=== PATIENT | female | born 1980 | race Caucasian/White ===

== ENCOUNTER 2017-06-28 16:56 | Inpatient (IN) | payer OTHER ==
[~2017-06-28] VITALS: Ht 170.2 cm; Wt 111.9 kg
[2017-06-28] MEDS: LACTATED RINGERS 1,000 ML IV SCH (06:30)
[~2017-06-28 16:56] MED LIST: iron
[2017-06-28 17:32] LABS: HEMATOCRIT 33.4 % (34.6-47.8); HEMOGLOBIN 11.6 g/dL (11.7-16.4); WHITE BLOOD COUNT 8.5 x10^3/uL (3.4-10)
[2017-06-28 17:41] LABS: ASPARTATE AMINO TRANSFERASE 14 U/L (15-37); BLOOD UREA NITROGEN 15 mg/dL (7-18)
[2017-06-28] MEDS ORDERED: PREN1TAB60 PO (19:40)
[2017-06-28] MEDS ORDERED: OXYTOCIN 30U/ 0.9% NaCL 500ML 500 ML IV ONE (19:59)
[2017-06-28] MEDS ORDERED: TERBUTALINE 1 MG/ML, 1ML IVPush PRN (20:00)
[2017-06-28] MEDS ORDERED: FENTANYL PF 100 MCG/2ML IVPush PRN (20:00)
[2017-06-28] MEDS ORDERED: FENTANYL PF 100 MCG/2ML IV PRN (20:00)
[2017-06-28] MEDS ORDERED: ONDANSETRON 2MG/ML, 2ML IVPush PRN (20:00)
[2017-06-28] MEDS ORDERED: NEWBORN KIT ONE (20:40)
[2017-06-29] MEDS ORDERED: DIPHENHYDRAMINE 25 MG CAPSULE ONE (01:03)
[2017-06-29] MEDS ORDERED: DIPHENHYDRAMINE 25 MG CAPSULE PO ONE (01:30)
[2017-06-29] MEDS: LACTATED RINGERS 1,000 ML IV SCH ×5 (03:59→19:59)
[2017-06-29] MEDS ORDERED: OXYTOCIN 30U/ 0.9% NaCL 500ML 500 ML IV ONE (10:20)
[2017-06-29] MEDS: D5%-LACTATED RINGERS 1,000 ML IV SCH ×2 (10:20→18:20)
[2017-06-29] MEDS ORDERED: OXYTOCIN 30U/ 0.9% NaCL 500ML 500 ML IV PRN (10:20)
[2017-06-29 10:48] LABS: HEMATOCRIT 34.7 % (34.6-47.8); HEMOGLOBIN 11.9 g/dL (11.7-16.4); WHITE BLOOD COUNT 7.6 x10^3/uL (3.4-10)
[2017-06-29] MEDS ORDERED: OXYTOCIN 30U/ 0.9% NaCL 500ML 500 ML ONE (19:15)
[2017-06-29 21:08] VITALS: BP 145/86
[2017-06-30] MEDS: D5%-LACTATED RINGERS 1,000 ML IV SCH ×3 (02:20→18:20)
[2017-06-30] MEDS: LACTATED RINGERS 1,000 ML IV SCH ×5 (02:20→18:20)
[2017-06-30] MEDS ORDERED: CEFAZOLIN PMX 2GM/50ML 50 ML IVPB SCH (11:30)
[2017-06-30] MEDS ORDERED: OXYTOCIN 30U/ 0.9% NaCL 500ML 500 ML IV SCH (15:37)
[2017-06-30] MEDS ORDERED: OXYcodone/APAP 5/325MG TABLET PO PRN (16:00)
[2017-06-30] MEDS ORDERED: CALCIUM CARBONATE 500 MG TAB.CHEW PO PRN (16:00)
[2017-06-30] MEDS ORDERED: GLYCERIN ADULT SUPP PR PRN (16:00)
[2017-06-30] MEDS ORDERED: DOCUSATE 100 MG CAPSULE PO PRN (16:00)
[2017-06-30] MEDS ORDERED: ONDANSETRON 2MG/ML, 2ML IV PRN (16:00)
[2017-06-30] MEDS ORDERED: MISOPROSTOL 200 MCG TABLET PR PRN (16:00)
[2017-06-30] MEDS ORDERED: MAGNESIUM HYDROXIDE 8%, 30ML UDC PO PRN (16:00)
[2017-06-30 17:15] VITALS: BP 116/72
[2017-06-30 20:00] VITALS: BP 132/83
[2017-07-01] MEDS: IBUPROFEN 600 MG TABLET PO PRN ×2 (00:11→08:24)
[2017-07-01 00:38] VITALS: BP 127/95
[2017-07-01 04:09] VITALS: BP 118/79
[2017-07-01 08:20] VITALS: BP 121/82
[2017-07-01] MEDS ORDERED: PRENATAL VIT/IRON/FA 1 EACH TABLET PO SCH (09:00)
[2017-07-01 09:39] LABS: HEMATOCRIT 34.8 % (34.6-47.8); HEMOGLOBIN 11.9 g/dL (11.7-16.4); WHITE BLOOD COUNT 11.9 x10^3/uL (3.4-10)
[2017-07-01 12:10] VITALS: BP 121/79
== END 2017-07-01 16:16 | disposition home or self-care (01) | DRG 775 ==
LOC: LDOP 16:56 → LDIP 19:56 → 2NW 06-30 17:20
PROVIDERS: ADMIT Obstetrics & Gynecology; ATTEND Obstetrics & Gynecology
PROC: 0HQ9XZZ Repair Perineum Skin, External Approach (ICD-10-PCS; principal; 2017-07-01)
PROC: 10E0XZZ Delivery of Products of Conception, External Approach (ICD-10-PCS; 2017-07-01)
PROC: 10907ZC Drainage of Amniotic Fluid, Therapeutic from Products of Conception, Via Natural or Artificial Opening (ICD-10-PCS; 2017-07-01)
DX: O14.04 Mild to moderate pre-eclampsia, complicating childbirth (principal); O42.92 Full-term premature rupture of membranes, unspecified as to length of time between rupture and onset of labor; Z37.0 Single live birth; O70.0 First degree perineal laceration during delivery; Z3A.38 38 weeks gestation of pregnancy
CPT/HCPCS: 36415; 80053; 81001; 82248; 82570; 84156; 84550; 85025; 86850; 86900; J0690; J2590; J7120; Q0163